=== PATIENT | female | born 1950 | race Caucasian/White ===

== ENCOUNTER 2017-08-24 21:28 | Emergency (ER) | payer BC ==
[2017-08-24 21:43] VITALS: BP 111/73
[2017-08-24] MEDS ORDERED: Sulfamethox/Trimethoprim DS 800/160* TAB PO ONE (21:59)
--- NOTE | 2017-08-24 22:00 | UC ---
Complaint Female HPI - History Of Current Complaint Chief Complaint: [facility] Stated Complaint: URINARY Time Seen by Provider: 08/24/17 21:30 - Allergies/Home Medications Allergies/Adverse Reactions: Allergies Allergy/AdvReac Type Severity Reaction Status Date / Time Metronidazole [From Flagyl] Allergy Intermediate Rash Verified 08/24/17 21:43 Home Medications: Home Medications Escitalopram (NF) [Lexapro 10 mg (NF)] 10 mg PO DAILY 08/24/17 [History Confirmed 08/24/17] PMH/Surg Hx/FS Hx/Imm Hx - Surgical History Surgical History: Yes Surgery Procedure, Year, and Place: laparoscopy - Social History Alcohol Use: Occasionally Substance Use Type: None Smoking Status (MU): Never Smoked Tobacco - Immunization History Most Recent Influenza Vaccination: [id number] Physical Exam Vital Signs: Initial Vital Signs Temp 98.2 F 08/24/17 21:39 Pulse 80 08/24/17 21:39 Resp 16 08/24/17 21:39 BP 111/73 08/24/17 21:39 Pulse Ox 98 08/24/17 21:39 Discharge - Discharge Plan Condition: Stable Disposition: HOME Prescriptions: Phenazopyridine TAB* [Pyridium 100 mg TAB*] 100 mg PO TID #6 tab Sulfamethox/Trimethoprim DS* [Bactrim DS 800/160 TAB*] 1 tab PO BID #9 tab Patient Education Materials: Phenazopyridine (By mouth), Urinary Tract Infection in Women (ED) Referrals: Jo Galvin MD [Primary Care Provider] - If Needed
== END 2017-08-24 22:08 | disposition home or self-care (01) ==
LOC: UCCORT 21:28
DX: R39.9 Unspecified symptoms and signs involving the genitourinary system (principal); Z88.1 Allergy status to other antibiotic agents
CPT/HCPCS: 87086; 99202; A9270-GY; G0463